=== PATIENT | female | born 2000 | race African-American/Black ===

== ENCOUNTER 2021-12-12 15:43 | Emergency (ER) | payer BC ==
[2021-12-12 16:56] LABS: #Eosinphils 0.1 10x3/uL (0.0-0.5); #Monocytes 0.4 10x3/uL (0.0-1.1); %Basophils 0.4 % (0.0-2.0); %Eosinophils 0.6 % (0.0-6.0); %Lymphocytes 21.2 % (18.0-47.0); %Monocytes 5.1 % (0.0-10.0); %Neutrophils 72.5 % (40.0-75.0); Hemoglobin 10.1 g/dL (12.0-15.5); Mean Corpuscular HGB CONC 33.4 g/dL (32.0-36.0); Mean Corpuscular Volume 77.8 fl (81.6-98.3); Mean Platelet Volume 10.7 fl (7.4-10.4); Platelet Count 277 10x3/uL (150-450); RBC Distribution Width 14.6 % (11.5-14.5); Red Blood Cell (RBC) Count 3.88 10x6/uL (3.90-5.03); White Blood Cell (WBC) Count 8.3 10x3/uL (3.5-10.5)
[2021-12-12 17:09] LABS: ALT (SGPT) 10 U/L (8-55); AST (SGOT) 24 U/L (5-34); Albumin 3.7 g/dL (3.5-5.0); Alkaline Phosphatase 44 U/L (40-100); Anion Gap 14 mmol/L (10-20); BUN (Urea Nitrogen) 9 mg/dL (7.0-18.7); Bilirubin, Total 0.4 mg/dL (0.2-1.2); Calc. Creatinine Clearance 0 mL/min (70-130); Calcium 8.6 mg/dL (7.8-10.44); Carbon Dioxide 16 mmol/L (22-29); Chloride 108 mmol/L (98-107); Glucose 89 mg/dL (70-105); Potassium 3.7 mmol/L (3.5-5.1); Protein, Total 6.7 g/dL (6.0-8.3); Sodium 134 mmol/L (136-145)
[2021-12-12 17:58] LABS: Bilirubin Neg (Negative); Blood, Urine Negative (Negative); Clarity Clear (Clear); Glucose, Urine (Dipstick) Normal (Negative); Ketone, Urine 5 mg/dL (Negative); Leukocyte 25 (Negative); Nitrite Negative (Negative); Protein, Urine (Dipstick) 30 mg/dl (Neg-Trace); Urobilinogen Normal mg/dL (Less than 2)
[2021-12-12 17:59] LABS: Pregnancy Test - Urine (BHCG) Negative (Negative); Pregu Control Background? CLEAR/WHITE (CLR/WHITE); Pregu Control Bar Appear? YES (CONTROL BAR)
[2021-12-12 18:09] LABS: Bacteria/HPF 2+ HPF (None Seen); Mucous/LPF 3+ LPF (<2+); RBC/HPF 0-3 HPF (0-3)
[2021-12-12] MEDS ORDERED: Acetaminophen 325 MG TAB ONE (18:22)
[2021-12-12] MEDS ORDERED: Ketorolac Tromethamine 30 MG/ML VIAL ONE (18:22)
== END 2021-12-12 19:02 | disposition home or self-care (01) ==
LOC: CSHERS 15:43
DX: R55 Syncope and collapse (principal); N39.0 Urinary tract infection, site not specified; I49.8 Other specified cardiac arrhythmias
CPT/HCPCS: 80053; 81003; 81015; 81025; 85025; 93005; 96374; J1885

== ENCOUNTER 2025-05-02 05:16 | Emergency (ER) | payer BC, SELFPAY ==
[2025-05-02 05:40] LABS: #Basophils Less than 0.03 10x3/uL (0.0-0.2); #Eosinophils Less than 0.03 10x3/uL (0.0-0.5); #Monocytes 0.32 10x3/uL (0.0-1.1); #Neutrophils 5.19 10x3/uL (1.5-8.4); %Basophils 0.1 % (0.0-2.0); %Eosinophils 0.3 % (0.0-6.0); %Lymphocytes 20.1 % (18.0-47.0); %Monocytes 4.6 % (0.0-10.0); %Neutrophils 74.6 % (40.0-75.0); Hematocrit 38.2 % (34.9-44.5); Hemoglobin 12.8 g/dL (12.0-15.5); Mean Corpuscular Hemoglobin 28.7 pg (27.0-33.0); Mean Corpuscular Volume 85.7 fL (81.6-98.3); Platelet Count 330 10x3/uL (150-450); Red Blood Cell (RBC) Count 4.46 10x6/uL (3.90-5.03); White Blood Cell (WBC) Count 6.96 10x3/uL (3.5-10.5)
[2025-05-02 05:46] LABS: BHCG - Serum Negative (NEGATIVE); Pregs Control Background? CLEAR/WHITE (CLR/WHITE); Pregs Control Bar Appear? YES (CONTROL BAR)
[2025-05-02 05:53] LABS: ALT (SGPT) 12 U/L (Less than 34); AST (SGOT) 50 U/L (11-34); Albumin 4.6 g/dL (3.1-4.5); Alkaline Phosphatase 63 U/L (40-110); Anion Gap 20 mmol/L (10-20); BUN (Urea Nitrogen) 6 mg/dL (7.0-18.7); Bilirubin, Total 0.2 mg/dL (0.3-1.2); Calc. Creatinine Clearance 0 mL/min (70-130); Calcium 8.5 mg/dL (7.8-10.44); Carbon Dioxide 16 mmol/L (22-29); Chloride 110 mmol/L (98-107); Globulin 3.1 g/dL (2.4-3.5); Glucose 114 mg/dL (70-105); Potassium 2.9 mmol/L (3.5-5.1); Sodium 143 mmol/L (136-145)
[2025-05-02 05:57] LABS: INR-International Normal Ratio 1.1; PTT 23.0 sec (22.0-33.0); Prothrombin Time 11.8 sec (9.5-12.1)
[2025-05-02 06:02] LABS: Glucose, Urine (Dipstick) Normal (Negative); Leukocyte 100 (Negative); Protein, Urine (Dipstick) 30 mg/dl (Neg-Trace); Specific Gravity, Urine 1.010 (1.005-1.030)
[2025-05-02 06:07] LABS: Bacteria/HPF 2+ HPF (None Seen); CAUTI Indications for Culture Alt mental st,lethar; RBC/HPF 0-3 HPF (0-3)
[2025-05-02 06:08] LABS: Urine Culture Reflex No No
[2025-05-02 06:09] LABS: Cocaine Metabolite Screen Negative (Negative); THC/Cannabinoid Screen PRELIM POSITIVE (Negative); Tricyclic Screen Negative (Negative)
[2025-05-02] MEDS ORDERED: cefTRIAXone (ROCEPHIN) 1 GM VIAL ONE (06:17)
[2025-05-02] MEDS ORDERED: Potassium Chloride 20 MEQ (100 mL) BAG ONE (06:17)
[2025-05-02 07:03] LABS: Acetaminophen Less than 10 mcg/mL (Less than 10); Salicylate Less than 8.0 mg/dL (Less than 8.0)
[2025-05-02] MEDS ORDERED: Iopamidol 300 61% 100 ML VIAL FS ONE (10:51)
== END 2025-05-02 09:48 | disposition short-term general hospital (02) ==
LOC: CSHERS 05:16
DX: S06.5XAA Traumatic subdural hemorrhage with loss of consciousness status unknown, initial encounter (principal); S36.892A Contusion of other intra-abdominal organs, initial encounter; E87.6 Hypokalemia; N39.0 Urinary tract infection, site not specified; V98.8XXA Other specified transport accidents, initial encounter; Z79.899 Other long term (current) drug therapy
CPT/HCPCS: 36415; 70450; 71260; 72125; 74177; 80053; 80306; 80307; 81001; 84703; 85025; 85610; 85730; 86850; 86900; 86901; 93005; 94760; 96365; 96374; 96375; 96376; J0696; J2272; J3480; Q9967

== ENCOUNTER 2025-05-05 11:59 | Observation (INO) | payer SELFPAY, OTHER ==
[2025-05-05 14:09] LABS: #Basophils Less than 0.03 10x3/uL (0.0-0.2); #Eosinophils 0.03 10x3/uL (0.0-0.5); #Monocytes 0.35 10x3/uL (0.0-1.1); #Neutrophils 2.73 10x3/uL (1.5-8.4); %Basophils 0.4 % (0.0-2.0); %Eosinophils 0.7 % (0.0-6.0); %Lymphocytes 30.7 % (18.0-47.0); %Monocytes 7.7 % (0.0-10.0); %Neutrophils 60.3 % (40.0-75.0); Hematocrit 44.1 % (34.9-44.5); Hemoglobin 14.4 g/dL (12.0-15.5); Mean Corpuscular Hemoglobin 28.2 pg (27.0-33.0); Mean Corpuscular Volume 86.3 fL (81.6-98.3); Platelet Count 336 10x3/uL (150-450); Red Blood Cell (RBC) Count 5.11 10x6/uL (3.90-5.03); White Blood Cell (WBC) Count 4.53 10x3/uL (3.5-10.5)
[2025-05-05 14:27] LABS: ALT (SGPT) 9 U/L (Less than 34); AST (SGOT) 26 U/L (11-34); Albumin 4.8 g/dL (3.1-4.5); Alkaline Phosphatase 62 U/L (40-110); Anion Gap 21 mmol/L (10-20); BUN (Urea Nitrogen) 7 mg/dL (7.0-18.7); Bilirubin, Total 0.6 mg/dL (0.3-1.2); Calc. Creatinine Clearance 0 mL/min (70-130); Calcium 9.2 mg/dL (7.8-10.44); Carbon Dioxide 12 mmol/L (22-29); Chloride 105 mmol/L (98-107); Globulin 3.5 g/dL (2.4-3.5); Glucose 68 mg/dL (70-105); Potassium 3.7 mmol/L (3.5-5.1); Sodium 134 mmol/L (136-145)
[2025-05-05] MEDS ORDERED: Dextrose 50% Abboject 50 ML SYRINGE ONE (14:38)
[2025-05-05] MEDS ORDERED: Dexamethasone 10 MG/ML VIAL ONE (17:59)
[2025-05-05] MEDS ORDERED: diphenhydrAMINE 50 MG/ML VIAL ONE (17:59)
[2025-05-05] MEDS ORDERED: Metoclopramide HCl 10 MG (2 mL) VIAL ONE (17:59)
[2025-05-05 18:25] LABS: BHCG - Serum Negative (NEGATIVE); Pregs Control Background? CLEAR/WHITE (CLR/WHITE); Pregs Control Bar Appear? YES (CONTROL BAR)
[2025-05-05 18:32] LABS: Acetaminophen Less than 10 mcg/mL (Less than 10); Salicylate Less than 8.0 mg/dL (Less than 8.0)
[2025-05-05 19:53] LABS: Glucose, Urine (Dipstick) Normal (Negative); Leukocyte 100 (Negative); Protein, Urine (Dipstick) 15 mg/dl (Neg-Trace); Specific Gravity, Urine 1.025 (1.005-1.030)
[2025-05-05 20:01] LABS: Cocaine Metabolite Screen Negative (Negative); THC/Cannabinoid Screen PRELIM POSITIVE (Negative); Tricyclic Screen Negative (Negative)
[2025-05-05 20:05] LABS: Bacteria/HPF Rare-Few HPF (None Seen); CAUTI Indications for Culture Dysuria,urgency,freq; RBC/HPF 0-3 HPF (0-3); Yeast-Budding 3+ HPF (None Seen)
[2025-05-05 20:06] LABS: Urine Culture Reflex No No
[2025-05-05] MEDS ORDERED: Senokot S 8.6-50 MG TAB PO PRN (21:25)
[2025-05-05] MEDS ORDERED: Calcium Carbonate 500 MG ChewTAB PO PRN (21:25)
[2025-05-05] MEDS ORDERED: Guaifenesin DM 100-10/5 ML UDCUP PO PRN (21:25)
[2025-05-05] MEDS ORDERED: Melatonin 3 MG TAB PO PRN (21:25)
[2025-05-05 21:26] LABS: Anion Gap 14 mmol/L (10-20); BUN (Urea Nitrogen) 5 mg/dL (7.0-18.7); Calc. Creatinine Clearance 0 mL/min (70-130); Calcium 8.5 mg/dL (7.8-10.44); Carbon Dioxide 13 mmol/L (22-29); Chloride 113 mmol/L (98-107); Glucose 97 mg/dL (70-105); Potassium 3.9 mmol/L (3.5-5.1); Sodium 136 mmol/L (136-145)
[2025-05-05] MEDS ORDERED: Albuterol 2.5 MG (3 mL) NEB NEB PRN (21:28)
[2025-05-05] MEDS ORDERED: Ketorolac Tromethamine 30 MG (1 mL) VIAL IVP PRN (21:31)
[2025-05-05 23:04] VITALS: BMI 16.5
[2025-05-05] MEDS: Lactulose 20 GM (30 mL) UDCUP PO SCH (23:19)
[2025-05-05] MEDS: Ondansetron PF 4 MG/2 ML Vial IVP PRN (23:19)
[2025-05-05] MEDS: Pantoprazole 40 MG VIAL IVP SCH (23:19)
[2025-05-05] MEDS: Fluconazole 100 MG TAB PO SCH (23:20)
[2025-05-05] MEDS: Droperidol 5 MG/2 ML VIAL SLOW IVP SCH (23:20)
[2025-05-05] MEDS: Lidocaine 2% Viscous Solution 10 ML, Aluminum & Magnesium Hydroxide 30 ML SSW SCH (23:20)
[2025-05-05] MEDS: Acetaminophen 325 MG TAB PO PRN (23:36)
[2025-05-06] MEDS ORDERED: FLU (Fluarix Triv) 25-26 (6MOS UP)/PF 45 MCG/0.5 ML Syringe IM ONE (03:45)
[2025-05-06 04:31] LABS: #Basophils Less than 0.03 10x3/uL (0.0-0.2); #Eosinophils Less than 0.03 10x3/uL (0.0-0.5); #Monocytes 0.04 10x3/uL (0.0-1.1); #Neutrophils 3.73 10x3/uL (1.5-8.4); %Basophils 0.0 % (0.0-2.0); %Eosinophils 0.0 % (0.0-6.0); %Lymphocytes 14.1 % (18.0-47.0); %Monocytes 0.9 % (0.0-10.0); %Neutrophils 84.5 % (40.0-75.0); Hematocrit 36.8 % (34.9-44.5); Hemoglobin 12.2 g/dL (12.0-15.5); Mean Corpuscular Hemoglobin 27.9 pg (27.0-33.0); Mean Corpuscular Volume 84.2 fL (81.6-98.3); Platelet Count 301 10x3/uL (150-450); Red Blood Cell (RBC) Count 4.37 10x6/uL (3.90-5.03); White Blood Cell (WBC) Count 4.41 10x3/uL (3.5-10.5)
[2025-05-06 04:48] LABS: ALT (SGPT) Less than 7 U/L (Less than 34); AST (SGOT) 14 U/L (11-34); Albumin 3.9 g/dL (3.1-4.5); Alkaline Phosphatase 54 U/L (40-110); Anion Gap 12 mmol/L (10-20); BUN (Urea Nitrogen) 4 mg/dL (7.0-18.7); Bilirubin, Total 0.5 mg/dL (0.3-1.2); CK (CPK) 119 U/L (29-168); Calc. Creatinine Clearance 101 mL/min (70-130); Calcium 8.2 mg/dL (7.8-10.44); Carbon Dioxide 16 mmol/L (22-29); Chloride 110 mmol/L (98-107); Globulin 2.7 g/dL (2.4-3.5); Glucose 182 mg/dL (70-105); Magnesium 2.0 mg/dL (1.6-2.6); Potassium 3.9 mmol/L (3.5-5.1); Sodium 134 mmol/L (136-145)
[2025-05-06] MEDS: Folic Acid 1 MG TAB PO SCH (08:36)
[2025-05-06] MEDS: Pantoprazole 40 MG VIAL IVP SCH (08:36)
[2025-05-06 13:00] VITALS: BP 110/69; TEMP 98.2
== END 2025-05-06 14:41 | disposition home or self-care (01) ==
LOC: CSHERS 11:59 → CSHTELE 22:04
PROVIDERS: ADMIT Student in an Organized Health Care Education/Training Program; ATTEND Student in an Organized Health Care Education/Training Program
DX: R11.2 Nausea with vomiting, unspecified (principal); R32 Unspecified urinary incontinence; E86.0 Dehydration; E87.20 Acidosis, unspecified; E16.2 Hypoglycemia, unspecified
CPT/HCPCS: 36415; 36416; 70450; 72146; 72148; 80053; 80306; 80307; 81001; 82010; 82533; 82550; 83605; 83735; 84443; 84703; 85025; 87077; 87086; 96361; 96374; 96375; 96376; G0378; J1100; J1200; J1790; J2405; J2470; J2765; J3010; J3411; J7999